=== PATIENT | female | born 1980 | race Caucasian/White ===

== ENCOUNTER → 2019-01-15 16:19 | Outpatient (CLI) | payer OTHER, SELFPAY ==
[2016-06-25 16:31] VITALS: BMI 43.9
[2019-01-15 18:02] LABS: Absolute Lymphocyte Count 2.21 X10^3/uL (0.83-4.51); Absolute Neutrophil Count 5.4 X10^3/uL (2.0-7.7); Basophil# 0.06 X10^3/uL; Basophil% 0.7 % (0-1); Eosinophil# 0.08 X10^3/uL; Hematocrit 44.2 % (37-47); Hemoglobin 14.1 g/dL (12.0-15.0); Lymphocyte # 2.21 X10^3/ul (4.0); Mean Corp Hgb Conc 31.9 g/dL (32-36); Mean Corpuscular Hgb 26.7 pg (27.0-32.0); Mean Corpuscular Volume 83.7 fL (81-99); Mean Platelet Vol. 10.4 fl (6.2-12.0); Monocyte# 0.38 X10^3/uL; Monocyte% 4.6 % (0-10); NRBC Flagged by Analyzer 0 % (0-5); Neutrophil # 5.44 X10^3/uL (2.7-7.7); Neutrophil % 66.5 % (47-70); Platelet Count 342 K/mm3 (150-450); RBC Distribution Width CV 13.5 % (11.6-14.6); Red Blood Count 5.28 M/mm3 (4.2-5.4); White Blood Count 8.2 K/mm3 (4.4-11.0)
[2019-01-15 18:24] LABS: Microalbumin,Random Urine 31.5 mg/L (NO RANGE EST.)
[2019-01-15 18:35] LABS: Erythrocyte Sedimentation Rate 36 mm/hr (0-20)
[2019-01-15 18:50] LABS: AST(SGOT) 25 U/L (15-37); Alanine Aminotransfer ALT/SGPT 64 U/L (13-56); Alkaline Phosphatase 51 U/L (45-117); Anion Gap 9 (5-15); BUN 14 mg/dL (7-18); BUN/Creat Ratio 21.8 RATIO (10-20); Calcium,Total 8.8 mg/dL (8.5-10.1); Chloride 104 mmol/L (98-107); Creatinine, Serum 0.64 mg/dL (0.55-1.02); EST Glomerular Filtration Rate 110 mL/min (>60); Est Glom Filt Rate - Afr Amer 133 mL/min (>60); Globulin 4.2 g/dL (2.2-4.2); Glucose 117 mg/dL (74-106); Potassium 3.8 mmol/L (3.5-5.1); Protein, Total 8.2 g/dL (6.4-8.2); Rheumatoid Factor < 10.0 IU/mL (<15); Sodium Level 138 mmol/L (136-145); Thyroid Stim Hormone (TSH) 2.05 uIU/mL (0.358-3.74)
[2019-01-16 10:06] LABS: Vitamin D,25 Hydroxy 32.4 ng/mL (29.95-100.01)
[2019-01-17 20:35] LABS: ANTINUCLEAR ANTIBODIES DIRECT Negative (Negative)
[2019-01-18 11:23] LABS: CCP IgG Antibodies 7 units (0-19)
== END ==
PROVIDERS: Visit Provider Family Medicine
DX: E11.65 Type 2 diabetes mellitus with hyperglycemia (principal); E28.2 Polycystic ovarian syndrome; M06.4 Inflammatory polyarthropathy
CPT/HCPCS: 36415; 80053; 82043; 82306; 82570; 84443; 85025; 85652; 86038; 86140; 86200; 86225; 86235; 86431

== ENCOUNTER 2021-05-14 17:00 | Outpatient (RCR) | payer OTHER, SELFPAY ==
--- NOTE | 2021-04-09 15:34 | HP.OTEVAL ---
Patient's Visit Information RAZIA CHOW is a 40 year old F, referred to Occupational Therapy by Dr. Casey Hartley Jr., MD, with a diagnosis of Lupus/ inflammatory arthritis, Bilateral wrist & hand pain. Date of Evaluation: 04/09/21 Occupational Therapist: Sheila Gregg, OTAnne/Isael, CHT - Subjective This 40 year old female was seen for OT eval with dx. systemic lupus erythematosus dx on 2021. pt states she has had pain in 2019 and with blood work for inflammation she has been working with her pain -. pt states she just deals with the pain-. pt states since she had covid she feels she has been in a flairs up since. pt states she does not use any adaptive equipment. 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 pt states when she carries heavy objects her fingers will lock into flexion sometimes carrying for less than 5min. pt states holding 35# or more increases finger locking. pt states she would like to figure out what she can do to decrease her bilateral hand pain - Pain bilateral hands 5 Pain Intensity Range: 5, 6 - ROM Forearm: right sup 50 left 65 Wrist: right 65/45 left 65/50 CMC: right 15 left 10 MP: right 45 left 55 IP: right 65 left 65 Radial Abduction: right 35 left 35 Palmar Abduction: right WNl left WNL Opposition: Kapandji Scale Right 10, left 10 MP: Right IF 0/65 L 0/75 MF R 0/75 L 0/75 RF 0/80 L 0/70 LF R 0/80 L 0/75 PIP: R IF 0/100 L 0/100 MF R 0/100 L 0/100 RF R 0/100 L 0/100 LF R 0/100 L 0/100 DIP: R IF 0/55 L 0/55 MF R 0/70 L 0/55 RF R 0/55 L 0/55 LF R 0/50 L 0/50 ROM Comments: pt demo tight composite fist bilaterally - Strength Show Girl: right 40# left 40# Lateral Pinch: right 12# left 10# Tripod Pinch: right 8# left 8# Tip-to-Tip Pinch: right 2# left 2# - Sensation Sensation Comments: denies - Quick DASH-Disab of Arm,Shoulder& Hand Quick DASH Score: 31.6650 - Goals Goal:: Pt will demo a increase in bilateral credit collections manager strength by 15# or greater to increase pts functional strength for ADLs and IADLs. pt will demo a increase in bilateral thumb stability by increase lateral and tripod pinch strength by 4# or greater by d/c Goal:: pt will demo increase in bilateral supination by 15* or greater to increase pts ind. with ADLs and IADLs by d/c. pt will demo increase in B wrist ROM by 20* to increase pts ind. with ADLs Goal:: pt will report a decrease in bilateral hand pain to 2/10 with use of bilateral hand with ADls and IADls by d.c Goal:: Pt will demo understanding of joint protection and ergonomics when performing BADLs and IADLs by d/c. Pt will demo understanding of adaptive Equipment use to decrease stress on joints to allow pt to perform BADSL and IADLS at NAHOMY level. pt will demo understanding of work modification to limit prolonged stress of finger joints by d/c - Rehabilitation General Assessment: pt reports pain and demo with bilateral thumb instability and limited bilateral ROM of forearm and wrist. this limits pts ind. with ADLs and IADls. Pt would benefit from skilled OT services 2-3x week for 4 weeks. Today therapist ed. pt on thumb mechanics, joint protection, use of modalities, use of compression gloves, and limit when she is hold objects for long periods of time IE cell phone- therapist also ed. pt to avoid aggressive end range active stretch to all finger joints. pt receptive and agree to POC. Rehabilitation Potential: Good - Anticipated Interventions A/AAROM/PROM, Strengthening, Triggerpoint Release, Modalities, Joint Protection/Energy Conservation, Ergonomic Education, Fine Motor Coord/Hammad, Education re assistive Equipment, Education re Diagnosis, Caregiver Training - Visit Plan Frequency: 2-3x /Week Duration: 4 Weeks TEXT: Thank you for the opportunity to evaluate your patient. For Medicare and Medicare HMO plans, please review the plan of care and approve it. It will need to be FAXED BACK to us at [phone] for Medicare purposes. Please let me know if there are questions or concerns regarding this plan of care. Physician Signature: Date:
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
--- NOTE | 2021-09-18 11:25 | HP.PTDCSUM ---
It has been my pleasure to treat RAZIA CHOW referred by Dr. Casey Hartley Jr., MD, with the diagnosis of BACK PAIN for a total of 7 visit(s). Discharge Date: 05/14/21 Please see the following information for a summary of their discharge status. Subjective: Doing much better doing ex's at home Bilateral Neck Pain Intensity (Out of 10): 4 Bilateral Back Pain Intensity (Out of 10): 2 Bilateral Shoulder Pain Intensity (Out of 10): 4 All over Pain Intensity (Out of 10): 4 % Improvement: 45 Objective/Function: POSTURE: WNL. GAIT: RECEPROCAL PATTERN. CERVICAL ROM: FLEXION WFL ,ROTATION/LATERAL FLEXION MIN LOSS ,EXTENSION MIN LOSS. LUMBAR ROM: flexion min loss, extension min loss, side glide min loss. MMT: BUE 4/5,LE 4/5 Goal 1:: I with HEP for back/neck /shoulders Goal Progress: Goal Met Goal 2:: Patient to demonstrate 50% improved function with ADLS and less pain shoulders ,back and neck Goal Progress: Goal Met Goal 3:: Patient improve posture for ADLS' 90% of the time. Goal Progress: Goal Met Goal 4:: Patient to increase strength RTC to 4/5 to improve function with ADLS' and housework tasks Goal Progress: Goal Met Goal 5:: Patient to improve back s oswetsry score by 5 points or > to improve function. Goal Progress: Goal Met Plan: D/C Discharge Comments: HEP If there are questions or concerns regarding this patient's physical therapy, please feel free to call me at [phone]. Thank you for the referral of this patient. Sincerely, Chay Chowdhury, PT, Cert MDT, OCS Balance/Gait/Functional tests - Balance/Special Test Scores Oswestry Low Back Score: 5
== END 2021-05-14 19:00 | disposition home or self-care (01) ==
LOC: PT 17:00
PROVIDERS: PCP Family Medicine; Referring Provider Internal Medicine Rheumatology; Visit Provider Internal Medicine Rheumatology
DX: M32.9 Systemic lupus erythematosus, unspecified (principal); R70.0 Elevated erythrocyte sedimentation rate; Z79.899 Other long term (current) drug therapy; Z79.1 Long term (current) use of non-steroidal anti-inflammatories (NSAID); Z82.61 Family history of arthritis; Z82.62 Family history of osteoporosis; Z82.69 Family history of other diseases of the musculoskeletal system and connective tissue; R79.82 Elevated C-reactive protein (CRP); R76.8 Other specified abnormal immunological findings in serum; E11.9 Type 2 diabetes mellitus without complications; M70.61 Trochanteric bursitis, right hip; M70.62 Trochanteric bursitis, left hip; M54.9 Dorsalgia, unspecified; M54.2 Cervicalgia; R53.83 Other fatigue; M25.561 Pain in right knee; M25.562 Pain in left knee; G89.29 Other chronic pain; M75.81 Other shoulder lesions, right shoulder; M75.82 Other shoulder lesions, left shoulder; M19.071 Primary osteoarthritis, right ankle and foot; M19.072 Primary osteoarthritis, left ankle and foot; M70.51 Other bursitis of knee, right knee; M70.52 Other bursitis of knee, left knee; M89.9 Disorder of bone, unspecified; M94.9 Disorder of cartilage, unspecified; M25.511 Pain in right shoulder; M25.512 Pain in left shoulder; M25.531 Pain in right wrist; M25.532 Pain in left wrist; M79.641 Pain in right hand; M79.642 Pain in left hand; M75.21 Bicipital tendinitis, right shoulder; M75.22 Bicipital tendinitis, left shoulder
CPT/HCPCS: 97110; 97162; 97166; 97530

== ENCOUNTER → 2021-06-12 | Outpatient (CLI) | payer OTHER, SELFPAY ==
--- NOTE | 2021-06-12 16:23 | RAD_ITS ---
STUDY: XR Wrist 2 Views REASON FOR EXAM: Female, 40 years old. PAIN TECHNIQUE: XR Wrist 2 Views RIGHT COMPARISON: None FINDINGS: There are no acute findings of the visualized distal radius and ulna. There are no acute findings of the radiocarpal articulation. Normal distal radioulnar articulation. Normal carpal bones. Normal carpal articulations. There are no acute findings of the carpometacarpal articulation of the thumb. Normal second through fifth carpometacarpal articulations. There are no acute findings of the visualized metacarpal bones. The soft tissue structures are unremarkable. RAD/Wrist 2 Views IMPRESSION: There are no acute findings of the wrist. Electronically Signed: Spencer Torres MD at 19:20 EDT ,
--- NOTE | 2021-06-12 16:23 | RAD_ITS ---
STUDY: XR Hand 2 Views REASON FOR EXAM: Female, 40 years old. PAIN TECHNIQUE: XR Hand 2 Views RIGHT COMPARISON: None. FINDINGS: Normal radiocarpal articulation. Normal distal radioulnar joint. Normal visualized carpal bones. Normal carpal articulations Normal carpometacarpal articulation of the thumb. Normal second through fifth carpometacarpal joints. Normal metacarpi. Normal metacarpophalangeal joint of the thumb. Normal interphalangeal joint of the thumb. Normal proximal and distal phalanges of the thumb. Normal metacarpophalangeal joints of the second through fifth fingers. Normal proximal and distal interphalangeal joints of the second through fifth fingers. Normal phalanges of the second through fifth fingers. The soft tissue structures are unremarkable. RAD/Hand 2 Views IMPRESSION: There are no acute findings. Electronically Signed: Spencer Torres MD at 19:19 EDT ,
--- NOTE | 2021-06-12 16:23 | RAD_ITS ---
STUDY: XR Shoulder Min 2 Views REASON FOR EXAM: Female, 40 years old. PAIN TECHNIQUE: XR Shoulder Min 2 Views RIGHT COMPARISON: None. FINDINGS: Normal glenohumeral articulation. There is degenerative arthrosis of the acromioclavicular joint without inferior osseous spur formation. Normal acromion. Normal humeral head and visualized proximal humerus. The soft tissue structures are unremarkable. Normal visualized pulmonary apex. RAD/Shoulder min 2 Views IMPRESSION: There are no acute findings of the shoulder. Electronically Signed: Spencer Torres MD at 19:18 EDT Reading Location ID and State: [facility] / [place] , Service support ,
--- NOTE | 2021-06-12 16:23 | RAD_ITS ---
STUDY: XR Wrist 2 Views REASON FOR EXAM: Female, 40 years old. PAIN TECHNIQUE: XR Wrist 2 Views LEFT COMPARISON: None FINDINGS: There are no acute findings of the visualized distal radius and ulna. There are no acute findings of the radiocarpal articulation. Normal distal radioulnar articulation. Normal carpal bones. Normal carpal articulations. There are no acute findings of the carpometacarpal articulation of the thumb. Normal second through fifth carpometacarpal articulations. There are no acute findings of the visualized metacarpal bones. The soft tissue structures are unremarkable. RAD/Wrist 2 Views IMPRESSION: There are no acute findings of the wrist. Electronically Signed: Spencer Torres MD at 19:21 EDT ,
--- NOTE | 2021-06-12 16:23 | RAD_ITS ---
STUDY: XR Hand 2 Views REASON FOR EXAM: Female, 40 years old. PAIN TECHNIQUE: XR Hand 2 Views LEFT COMPARISON: None. FINDINGS: Normal radiocarpal articulation. Normal distal radioulnar joint. Normal visualized carpal bones. Normal carpal articulations Normal carpometacarpal articulation of the thumb. Normal second through fifth carpometacarpal joints. Normal metacarpi. Normal metacarpophalangeal joint of the thumb. Normal interphalangeal joint of the thumb. Normal proximal and distal phalanges of the thumb. Normal metacarpophalangeal joints of the second through fifth fingers. Normal proximal and distal interphalangeal joints of the second through fifth fingers. Normal phalanges of the second through fifth fingers. The soft tissue structures are unremarkable. RAD/Hand 2 Views IMPRESSION: There are no acute findings. Electronically Signed: Spencer Torres MD at 19:18 EDT ,
--- NOTE | 2021-06-12 16:23 | RAD_ITS ---
STUDY: X-RAY - PELVIS AND BILATERAL HIP REASON FOR EXAM: Female, 40 years old. PAIN TECHNIQUE: XR Hips Bilateral with Pelvis when performed; 2 Views COMPARISON: None. FINDINGS: There is a non-specific bowel gas pattern. Normal visualized soft tissue structures. Normal bilateral iliac wings, sacroiliac joints and visualized sacrum. Normal bilateral superior and inferior pubic rami. Normal pubic symphysis. Normal bilateral ischial tuberosities. Normal visualized femoral head. Normal acetabulum. Normal hip joint. RAD/Hips B/L min 2 views w/ Pelvis IMPRESSION: No acute findings. Electronically Signed: Spencer Torres MD at 19:18 EDT ,
--- NOTE | 2021-06-12 16:23 | RAD_ITS ---
STUDY: XR Shoulder Min 2 Views REASON FOR EXAM: Female, 40 years old. PAIN TECHNIQUE: XR Shoulder Min 2 Views LEFT COMPARISON: None. FINDINGS: Normal glenohumeral articulation. There is degenerative arthrosis of the acromioclavicular joint without inferior osseous spur formation. Normal acromion. Normal humeral head and visualized proximal humerus. The soft tissue structures are unremarkable. Normal visualized pulmonary apex. RAD/Shoulder min 2 Views IMPRESSION: There are no acute findings of the shoulder. Electronically Signed: Spencer Torres MD at 19:17 EDT Reading Location ID and State: [facility] / [place] , Service support ,
--- NOTE | 2021-06-12 16:23 | RAD_ITS ---
STUDY: X-RAY - LUMBAR SPINE REASON FOR EXAM: Female, 40 years old. LOW BACK PAIN PAIN -- 5 VIEWS TECHNIQUE: XR Spine Lumbar Min 4 Views COMPARISON: None FINDINGS: Normal lumbar lordosis. There is no substantial scoliosis. There is a normal alignment of the vertebrae. There is multilevel endplate spondylosis of the lumbar vertebrae. There is multi-level degenerative disc disease with multi-level disc space narrowing. The soft tissue structures are unremarkable. RAD/L/S Spine Min 4 Views IMPRESSION: Degenerative changes of the spine, as detailed above. Electronically Signed: Spencer Torres MD at 19:21 EDT ,
--- NOTE | 2021-06-12 16:23 | RAD_ITS ---
STUDY: XR Knee Complete 4 Views or More 06/12/2021 7:18 PM REASON FOR EXAM: Female, 40 years old. PAIN TECHNIQUE: XR Knee Complete 4 Views or More LEFT COMPARISON: None FINDINGS: Normal visualized distal femur. Normal visualized proximal tibia and fibula. Normal proximal tibiofibular articulation. Normal medial femorotibial compartment. Normal lateral femorotibial compartment. Normal patellofemoral articulation. The soft tissue structures are unremarkable. RAD/Knee 4 or More Views IMPRESSION: There are no acute findings. Electronically Signed: Spencer Torres MD at 19:19 EDT ,
--- NOTE | 2021-06-12 16:23 | RAD_ITS ---
EXAM: XR SACRUM AND COCCYX, 2 OR MORE VIEWS CLINICAL INDICATION: PAIN TECHNIQUE: Frontal and lateral views of the sacrum and coccyx. This report was created using [employer] report generation technology. COMPARISON: None. FINDINGS: SACRUM/COCCYX: Unremarkable. No displaced fracture. No destructive or sclerotic lesions. Note that overlapping bowel shadows may however obscure fine detail in the frontal view. Sacroiliac joints are unremarkable. SOFT TISSUES: Unremarkable. No soft tissue swelling or gas. RAD/S-I Jts 3 or More Views IMPRESSION: Unremarkable sacro-coccygeal spine. Electronically Signed: Spencer Torres MD at 19:20 EDT ,
--- NOTE | 2021-06-12 16:32 | RAD_ITS ---
EXAM: XR CERVICAL SPINE, 4 OR 5 VIEWS CLINICAL INDICATION: PAIN TECHNIQUE: Frontal, lateral and bilateral oblique views of the cervical spine. This report was created using [employer] report generation technology. COMPARISON: None. FINDINGS: VERTEBRAE: Unremarkable. Preserved vertebral body height. No acute fracture. No spondylolisthesis. Preservation of the normal cervical lordosis. No significant facet arthropathy. DISC SPACES: Unremarkable. Disc spaces are maintained. SOFT TISSUES: Unremarkable. No prevertebral soft tissue widening. LUNG APICES: Clear. RAD/Cerv Spine 4 or 5 Views IMPRESSION: No evidence of acute fracture or spondylolisthesis. Electronically Signed: Spencer Torres MD at 19:19 EDT Reading Location ID and State: [facility] / [place] , Service support ,
--- NOTE | 2021-06-12 16:42 | RAD_ITS ---
STUDY: XR Knee Complete 4 Views or More 06/12/2021 7:18 PM REASON FOR EXAM: Female, 40 years old. PAIN TECHNIQUE: XR Knee Complete 4 Views or More RIGHT COMPARISON: None FINDINGS: Normal visualized distal femur. Normal visualized proximal tibia and fibula. Normal proximal tibiofibular articulation. Normal medial femorotibial compartment. Normal lateral femorotibial compartment. Normal patellofemoral articulation. The soft tissue structures are unremarkable. RAD/Knee 4 or More Views IMPRESSION: There are no acute findings. Electronically Signed: Spencer Torres MD at 19:19 EDT ,
== END | disposition home or self-care (01) ==
LOC: RAD 16:22
PROVIDERS: PCP Family Medicine; Referring Provider Internal Medicine Rheumatology; Visit Provider Internal Medicine Rheumatology
DX: M32.9 Systemic lupus erythematosus, unspecified (principal); E11.9 Type 2 diabetes mellitus without complications; R70.0 Elevated erythrocyte sedimentation rate; Z79.899 Other long term (current) drug therapy; Z79.1 Long term (current) use of non-steroidal anti-inflammatories (NSAID); R53.83 Other fatigue; Z82.61 Family history of arthritis; Z82.69 Family history of other diseases of the musculoskeletal system and connective tissue; R79.82 Elevated C-reactive protein (CRP); R76.8 Other specified abnormal immunological findings in serum; M70.61 Trochanteric bursitis, right hip; M70.62 Trochanteric bursitis, left hip; M54.9 Dorsalgia, unspecified; M54.2 Cervicalgia; M25.561 Pain in right knee; M25.562 Pain in left knee; G89.29 Other chronic pain; M75.81 Other shoulder lesions, right shoulder; M75.82 Other shoulder lesions, left shoulder; M19.071 Primary osteoarthritis, right ankle and foot; M19.072 Primary osteoarthritis, left ankle and foot; M70.51 Other bursitis of knee, right knee; M70.52 Other bursitis of knee, left knee; M19.90 Unspecified osteoarthritis, unspecified site; M89.9 Disorder of bone, unspecified; M94.9 Disorder of cartilage, unspecified; M25.511 Pain in right shoulder; M25.512 Pain in left shoulder; M25.551 Pain in right hip; M25.552 Pain in left hip; M25.531 Pain in right wrist; M25.532 Pain in left wrist; M79.641 Pain in right hand; M79.642 Pain in left hand; M75.21 Bicipital tendinitis, right shoulder; M75.22 Bicipital tendinitis, left shoulder
CPT/HCPCS: 72050; 72110; 72202; 73030; 73100; 73120; 73130; 73502; 73521; 73564

== ENCOUNTER → 2021-06-17 | Outpatient (CLI) | payer OTHER, SELFPAY ==
[2021-06-17 15:56] LABS: Bacteria 0 SEEN /hpf (None Seen); Mucous, Urine 0 SEEN /hpf (<or=2+); Red Blood Cells-Urine 0 SEEN /hpf (0-5); Squamous Epithelial Cells - UA 0 SEEN /hpf (5-10); White Blood Cells 0 SEEN /hpf (0-5)
[2021-06-17 17:06] LABS: Absolute Lymphocyte Count 2.45 X10^3/uL (0.83-4.51); Absolute Neutrophil Count 3.3 X10^3/uL (2.0-7.7); Basophil# 0.05 X10^3/uL; Basophil% 0.8 % (0-1); Eosinophils% 1.6 % (0-5); Hematocrit 38.3 % (37-47); Hemoglobin 12.6 g/dL (12.0-15.0); Lymphocyte # 2.45 X10^3/ul (0.83-4.51); Lymphocyte % 38.5 % (19-41); Mean Corp Hgb Conc 32.9 g/dL (32-36); Mean Platelet Vol. 10.6 fl (6.2-12.0); Monocyte# 0.46 X10^3/uL; Monocyte% 7.2 % (0-10); NRBC Flagged by Analyzer 0 % (0-5); Neutrophil # 3.29 X10^3/uL (2.7-7.7); Neutrophil % 51.6 % (47-70); Platelet Count 345 K/mm3 (150-450); RBC Distribution Width CV 13.8 % (11.6-14.6); RBC Distribution Width SD 40.8 fl (35.1-43.9); Red Blood Count 4.67 M/mm3 (4.2-5.4); White Blood Count 6.4 K/mm3 (4.4-11.0)
[2021-06-17 17:28] LABS: Color, Urine Yellow (Yellow); Glucose, Dipstick Normal (Normal); Ketone-Dipstick Negative (Negative); Leukocyte Esterase-Dipstick Negative /ul (Negative); Nitrite-Dipstick Negative (Negative); Occult Blood-Urine Negative /ul (Negative); Protein-Dipstick 15 mg/dl (Negative); Urine Bilirubin Dipstick Negative (Negative); Urine Clarity Clear (Clear); Urine Urobilinogen Normal (Normal)
[2021-06-17 17:46] LABS: Vitamin D,25 Hydroxy 60.5 ng/mL
[2021-06-17 17:56] LABS: AST(SGOT) 17 U/L (15-37); Alanine Aminotransfer ALT/SGPT 38 U/L (13-56); Albumin, Serum 3.7 g/dL (3.2-5.0); Alkaline Phosphatase 55 U/L (45-117); Anion Gap 7 (5-15); BUN 12 mg/dL (7-18); BUN/Creat Ratio 16.9 RATIO (10-20); CPK Total, Creatine Kinase 80 U/L (26-192); CRP 9.52 mg/L (0.0-3.0); Calcium,Total 8.2 mg/dL (8.5-10.1); Chloride 103 mmol/L (98-107); Creatinine, Serum 0.71 mg/dL (0.55-1.02); EST Glomerular Filtration Rate 96 mL/min (>60); Est Glom Filt Rate - Afr Amer 116 mL/min (>60); Globulin 3.7 g/dL (2.2-4.2); Glucose 111 mg/dL (74-106); Magnesium 1.9 mg/dL (1.6-2.6); Protein, Total 7.4 g/dL (6.4-8.2); Rheumatoid Factor < 10.0 IU/mL (<15); Sodium Level 137 mmol/L (136-145); Uric Acid 5.5 mg/dL (2.6-6.0)
[2021-06-17 18:25] LABS: Erythrocyte Sedimentation Rate 32 mm/hr (0-30)
[2021-06-20 15:25] LABS: ANTINUCLEAR ANTIBODIES DIRECT Negative (Negative); Vitamin D 1,25-Dihydroxy 42.4 pg/mL (19.9-79.3)
[2021-06-25 14:10] LABS: Albumin 3.9 g/dL (2.9-4.4); Alpha-1-Globulins 0.2 g/dL (0.0-0.4); Angiotensin Convert Enzyme 43 U/L (14-82); Complement C3 145 mg/dL (82-167); Cytoplasmic Ab (C-ANCA) <1:20 titer (Neg:<1:20); Gamma Globulin 0.9 g/dL (0.4-1.8); Immunoglobulin A 291 mg/dL (87-352); Immunoglobulin G 1018 mg/dL (586-1602); Immunoglobulin M 39 mg/dL (26-217); PROEL- TOTAL PROTEIN 7.1 g/dL (6.0-8.5); Red Blood Cell Count Test/G6PD 4.75 x10E6/uL (3.77-5.28)
[2021-06-25 16:10] LABS: G6PD Quant Test 256 (127-427); HLA B27 Negative (.); Perinuclear Ab (P-ANCA) <1:20 titer (Neg:<1:20); t-Transglutaminase IgA 4 U/mL (0-3)
== END | disposition home or self-care (01) ==
PROVIDERS: PCP Family Medicine; Visit Provider Internal Medicine Rheumatology
DX: M32.9 Systemic lupus erythematosus, unspecified (principal); R70.0 Elevated erythrocyte sedimentation rate; Z79.899 Other long term (current) drug therapy; Z79.1 Long term (current) use of non-steroidal anti-inflammatories (NSAID); R53.83 Other fatigue; Z82.69 Family history of other diseases of the musculoskeletal system and connective tissue; Z82.61 Family history of arthritis; Z82.62 Family history of osteoporosis; R79.82 Elevated C-reactive protein (CRP); R76.8 Other specified abnormal immunological findings in serum; M70.61 Trochanteric bursitis, right hip; M70.62 Trochanteric bursitis, left hip; M54.9 Dorsalgia, unspecified; M54.2 Cervicalgia; M25.561 Pain in right knee; M25.562 Pain in left knee; G89.29 Other chronic pain; M75.81 Other shoulder lesions, right shoulder; M75.82 Other shoulder lesions, left shoulder; M75.51 Bursitis of right shoulder; M75.52 Bursitis of left shoulder; M19.071 Primary osteoarthritis, right ankle and foot; M19.072 Primary osteoarthritis, left ankle and foot; M70.51 Other bursitis of knee, right knee; M70.52 Other bursitis of knee, left knee; M19.90 Unspecified osteoarthritis, unspecified site; M89.9 Disorder of bone, unspecified; M94.9 Disorder of cartilage, unspecified; M25.511 Pain in right shoulder; M25.512 Pain in left shoulder; M25.551 Pain in right hip; M25.552 Pain in left hip; M25.531 Pain in right wrist; M25.532 Pain in left wrist; M79.641 Pain in right hand; M79.642 Pain in left hand; M75.21 Bicipital tendinitis, right shoulder; M75.22 Bicipital tendinitis, left shoulder
CPT/HCPCS: 36415; 80053; 81001; 81374; 82164; 82306; 82550; 82652; 82784; 82955; 83516; 83735; 84165; 84550; 85025; 85652; 86038; 86140; 86160; 86225; 86235; 86256; 86334; 86335; 86431

== ENCOUNTER → 2021-09-02 | Outpatient (CLI) | payer OTHER, SELFPAY ==
[2021-09-02 16:33] LABS: Mucous, Urine 0 SEEN /hpf (<or=2+); Red Blood Cells-Urine 0 SEEN /hpf (0-5)
[2021-09-02 17:22] LABS: Absolute Lymphocyte Count 2.37 X10^3/uL (0.83-4.51); Absolute Neutrophil Count 3.9 X10^3/uL (2.0-7.7); Basophil# 0.04 X10^3/uL; Basophil% 0.6 % (0-1); Eosinophil# 0.09 X10^3/uL; Eosinophils% 1.3 % (0-5); Hematocrit 39.7 % (37-47); Hemoglobin 12.8 g/dL (12.0-15.0); Lymphocyte # 2.37 X10^3/ul (0.83-4.51); Lymphocyte % 34.8 % (19-41); Mean Corp Hgb Conc 32.2 g/dL (32-36); Mean Corpuscular Hgb 27.1 pg (27.0-32.0); Mean Corpuscular Volume 83.9 fL (81-99); Mean Platelet Vol. 10.3 fl (6.2-12.0); Monocyte# 0.44 X10^3/uL; Monocyte% 6.5 % (0-10); NRBC Flagged by Analyzer 0 % (0-5); Neutrophil # 3.86 X10^3/uL (2.7-7.7); Neutrophil % 56.5 % (47-70); Platelet Count 341 K/mm3 (150-450); RBC Distribution Width CV 13.7 % (11.6-14.6); RBC Distribution Width SD 41.9 fl (35.1-43.9); Red Blood Count 4.73 M/mm3 (4.2-5.4); White Blood Count 6.8 K/mm3 (4.4-11.0)
[2021-09-02 17:25] LABS: Color, Urine Yellow (Yellow); Glucose, Dipstick Normal (Normal); Ketone-Dipstick 5 mg/dl (Negative); Leukocyte Esterase-Dipstick 25 /ul (Negative); Nitrite-Dipstick Negative (Negative); Occult Blood-Urine Negative /ul (Negative); Protein-Dipstick 15 mg/dl (Negative); Specific Gravity, Urine 1.025 (1.002-1.030); Urine Bilirubin Dipstick Negative (Negative); Urine Clarity Clear (Clear); Urine Urobilinogen Normal (Normal)
[2021-09-02 17:28] LABS: Erythrocyte Sedimentation Rate 15 mm/hr (0-30)
[2021-09-02 17:36] LABS: Bacteria 3+ /hpf (None Seen); Squamous Epithelial Cells - UA 0-5 SEEN /hpf (5-10); White Blood Cells 0-5 SEEN /hpf (0-5)
[2021-09-02 18:01] LABS: ALB/GLOB Ratio 1.1 RATIO (0.9-2.4); AST(SGOT) 15 U/L (15-37); Alanine Aminotransfer ALT/SGPT 34 U/L (13-56); Albumin, Serum 3.8 g/dL (3.2-5.0); Alkaline Phosphatase 41 U/L (45-117); Anion Gap 6 (5-15); BUN 15 mg/dL (7-18); BUN/Creat Ratio 20.1 RATIO (10-20); CPK Total, Creatine Kinase 103 U/L (26-192); Chloride 104 mmol/L (98-107); Creatinine, Serum 0.75 mg/dL (0.55-1.02); EST Glomerular Filtration Rate 91 mL/min (>60); Est Glom Filt Rate - Afr Amer 110 mL/min (>60); Globulin 3.6 g/dL (2.2-4.2); Glucose 147 mg/dL (74-106); Potassium 3.9 mmol/L (3.5-5.1); Protein, Total 7.4 g/dL (6.4-8.2); Sodium Level 138 mmol/L (136-145)
[2021-09-03 08:33] LABS: Hepatitis B Surface Antibody Non-Reactive
[2021-09-04 12:08] LABS: Complement C3 159 mg/dL (82-167); HEPATITIS B SURFACE AG Negative (Negative); Hep C Antibodies 0.1 s/co ratio (0.0-0.9); Hepatitis A IgM Antibody Negative (Negative); Hepatitis B Core AB IgM Negative (Negative)
[2021-09-04 13:22] LABS: Hepatitis A AB, Total Negative (Negative)
== END | disposition home or self-care (01) ==
LOC: LAB 16:20
PROVIDERS: PCP Family Medicine; Referring Provider Internal Medicine Rheumatology; Visit Provider Internal Medicine Rheumatology
DX: M32.9 Systemic lupus erythematosus, unspecified (principal); R70.0 Elevated erythrocyte sedimentation rate; R76.8 Other specified abnormal immunological findings in serum; R79.82 Elevated C-reactive protein (CRP); Z82.69 Family history of other diseases of the musculoskeletal system and connective tissue; Z82.62 Family history of osteoporosis; Z82.61 Family history of arthritis; Z79.1 Long term (current) use of non-steroidal anti-inflammatories (NSAID); Z79.899 Other long term (current) drug therapy; R80.8 Other proteinuria; R73.9 Hyperglycemia, unspecified; E83.51 Hypocalcemia; M75.41 Impingement syndrome of right shoulder; M75.42 Impingement syndrome of left shoulder; M51.36 Other intervertebral disc degeneration, lumbar region; M19.011 Primary osteoarthritis, right shoulder; M19.012 Primary osteoarthritis, left shoulder; M19.071 Primary osteoarthritis, right ankle and foot; M19.072 Primary osteoarthritis, left ankle and foot
CPT/HCPCS: 36415; 80053; 80074; 81001; 82550; 85025; 85652; 86140; 86160; 86706; 86708; 87086; 87088

== ENCOUNTER → 2021-10-30 | Outpatient (CLI) | payer OTHER, SELFPAY | END | disposition home or self-care (01) | PROVIDERS: PCP Family Medicine; Referring Provider Family Medicine; Visit Provider Family Medicine | DX: R30.0 Dysuria (principal) | CPT/HCPCS: 87077; 87086; 87088; 87186 ==

== ENCOUNTER 2021-11-18 16:19 | Outpatient (RCR) | payer OTHER, SELFPAY ==
[2021-11-18 16:29] LABS: Mucous, Urine 0 SEEN /hpf (<or=2+)
[2021-11-18 17:26] LABS: Color, Urine Straw (Yellow); Glucose, Dipstick 100 mg/dl (Normal); Ketone-Dipstick Negative (Negative); Leukocyte Esterase-Dipstick Negative /ul (Negative); Nitrite-Dipstick Negative (Negative); Occult Blood-Urine Negative /ul (Negative); Protein-Dipstick 15 mg/dl (Negative); Specific Gravity, Urine 1.025 (1.002-1.030); Urine Bilirubin Dipstick Negative (Negative); Urine Clarity Clear (Clear); Urine Urobilinogen Normal (Normal)
[2021-11-18 17:49] LABS: Bacteria 3+ /hpf (None Seen); Red Blood Cells-Urine 0-5 SEEN /hpf (0-5); Squamous Epithelial Cells - UA 5-10 SEEN /hpf (5-10); White Blood Cells 0-5 SEEN /hpf (0-5)
[2021-11-18 17:55] LABS: AST(SGOT) 21 U/L (15-37); Alanine Aminotransfer ALT/SGPT 44 U/L (13-56); Albumin, Serum 3.8 g/dL (3.2-5.0); Alkaline Phosphatase 46 U/L (45-117); Anion Gap 7 (5-15); BUN 15 mg/dL (7-18); BUN/Creat Ratio 18.9 RATIO (10-20); CPK Total, Creatine Kinase 85 U/L (26-192); CRP 9.46 mg/L (0.0-3.0); Calcium,Total 9.1 mg/dL (8.5-10.1); Chloride 103 mmol/L (98-107); EST Glomerular Filtration Rate 85 mL/min (>60); Est Glom Filt Rate - Afr Amer 102 mL/min (>60); Globulin 3.8 g/dL (2.2-4.2); Glucose 155 mg/dL (74-106); Potassium 4.3 mmol/L (3.5-5.1); Protein, Total 7.6 g/dL (6.4-8.2); Sodium Level 139 mmol/L (136-145)
[2021-11-18 18:15] LABS: Absolute Lymphocyte Count 2.75 X10^3/uL (0.83-4.51); Absolute Neutrophil Count 3.9 X10^3/uL (2.0-7.7); Basophil# 0.06 X10^3/uL; Basophil% 0.8 % (0-1); Eosinophil# 0.12 X10^3/uL; Eosinophils% 1.6 % (0-5); Hematocrit 40.5 % (37-47); Hemoglobin 13.1 g/dL (12.0-15.0); Lymphocyte # 2.75 X10^3/ul (0.83-4.51); Lymphocyte % 37.7 % (19-41); Mean Corp Hgb Conc 32.3 g/dL (32-36); Mean Corpuscular Hgb 27.8 pg (27.0-32.0); Mean Platelet Vol. 10.8 fl (6.2-12.0); Monocyte# 0.43 X10^3/uL; Monocyte% 5.9 % (0-10); NRBC Flagged by Analyzer 0 % (0-5); Neutrophil # 3.91 X10^3/uL (2.7-7.7); Neutrophil % 53.7 % (47-70); Platelet Count 374 K/mm3 (150-450); RBC Distribution Width CV 14.3 % (11.6-14.6); RBC Distribution Width SD 45.1 fl (35.1-43.9); Red Blood Count 4.71 M/mm3 (4.2-5.4); White Blood Count 7.3 K/mm3 (4.4-11.0)
[2021-11-18 18:22] LABS: Erythrocyte Sedimentation Rate 18 mm/hr (0-30)
[2021-11-20 15:45] LABS: Complement C3 149 mg/dL (82-167)
== END 2021-11-18 18:00 | disposition home or self-care (01) ==
LOC: LAB 16:19
PROVIDERS: PCP Family Medicine; Referring Provider Internal Medicine Rheumatology; Visit Provider Internal Medicine Rheumatology
DX: M32.9 Systemic lupus erythematosus, unspecified (principal); R76.8 Other specified abnormal immunological findings in serum; R79.82 Elevated C-reactive protein (CRP); Z82.69 Family history of other diseases of the musculoskeletal system and connective tissue; Z82.62 Family history of osteoporosis; Z82.61 Family history of arthritis; R82.4 Acetonuria; Z79.1 Long term (current) use of non-steroidal anti-inflammatories (NSAID); Z79.899 Other long term (current) drug therapy; R80.8 Other proteinuria; R73.9 Hyperglycemia, unspecified; M75.41 Impingement syndrome of right shoulder; M75.42 Impingement syndrome of left shoulder; M19.90 Unspecified osteoarthritis, unspecified site; M51.36 Other intervertebral disc degeneration, lumbar region; M19.011 Primary osteoarthritis, right shoulder; M19.012 Primary osteoarthritis, left shoulder
CPT/HCPCS: 36415; 80053; 81001; 82550; 85025; 85652; 86140; 86160

== ENCOUNTER 2022-01-13 16:18 | Outpatient (RCR) | payer OTHER, SELFPAY ==
[2022-01-13 16:24] LABS: Mucous, Urine 0 SEEN /hpf (<or=2+); Red Blood Cells-Urine 0 SEEN /hpf (0-5)
[2022-01-13 16:48] LABS: Color, Urine Yellow (Yellow); Glucose, Dipstick Normal (Normal); Ketone-Dipstick Negative (Negative); Leukocyte Esterase-Dipstick 25 /ul (Negative); Nitrite-Dipstick Negative (Negative); Occult Blood-Urine Negative /ul (Negative); Protein-Dipstick Negative (Negative); Urine Bilirubin Dipstick Negative (Negative); Urine Clarity Clear (Clear); Urine Urobilinogen Normal (Normal)
[2022-01-13 16:51] LABS: Absolute Lymphocyte Count 2.37 X10^3/uL (0.83-4.51); Absolute Neutrophil Count 3.3 X10^3/uL (2.0-7.7); Basophil# 0.05 X10^3/uL; Basophil% 0.8 % (0-1); Eosinophils% 1.6 % (0-5); Hematocrit 38.3 % (37-47); Hemoglobin 12.5 g/dL (12.0-15.0); Lymphocyte # 2.37 X10^3/ul (0.83-4.51); Lymphocyte % 37.7 % (19-41); Mean Corp Hgb Conc 32.6 g/dL (32-36); Mean Corpuscular Hgb 28.1 pg (27.0-32.0); Mean Corpuscular Volume 86.1 fL (81-99); Monocyte# 0.46 X10^3/uL; Monocyte% 7.3 % (0-10); NRBC Flagged by Analyzer 0 % (0-5); Neutrophil # 3.28 X10^3/uL (2.7-7.7); Neutrophil % 52.3 % (47-70); Platelet Count 317 K/mm3 (150-450); RBC Distribution Width CV 14.4 % (11.6-14.6); RBC Distribution Width SD 44.7 fl (35.1-43.9); Red Blood Count 4.45 M/mm3 (4.2-5.4); White Blood Count 6.3 K/mm3 (4.4-11.0)
[2022-01-13 16:59] LABS: Bacteria 2+ /hpf (None Seen); Squamous Epithelial Cells - UA 0-5 SEEN /hpf (5-10)
[2022-01-13 17:00] LABS: White Blood Cells 0-5 SEEN /hpf (0-5)
[2022-01-13 17:07] LABS: Erythrocyte Sedimentation Rate 14 mm/hr (0-30)
[2022-01-13 17:41] LABS: ALB/GLOB Ratio 1.1 RATIO (0.9-2.4); AST(SGOT) 19 U/L (15-37); Alanine Aminotransfer ALT/SGPT 56 U/L (13-56); Albumin, Serum 3.7 g/dL (3.2-5.0); Alkaline Phosphatase 49 U/L (45-117); Anion Gap 6 (5-15); BUN 14 mg/dL (7-18); BUN/Creat Ratio 18.9 RATIO (10-20); CPK Total, Creatine Kinase 81 U/L (26-192); Calcium,Total 8.8 mg/dL (8.5-10.1); Chloride 104 mmol/L (98-107); Creatinine, Serum 0.74 mg/dL (0.55-1.02); EST Glomerular Filtration Rate 92 mL/min (>60); Est Glom Filt Rate - Afr Amer 111 mL/min (>60); Globulin 3.4 g/dL (2.2-4.2); Glucose 157 mg/dL (74-106); Potassium 4.1 mmol/L (3.5-5.1); Protein, Total 7.1 g/dL (6.4-8.2); Sodium Level 140 mmol/L (136-145)
[2022-01-15 10:38] LABS: Complement C3 154 mg/dL (82-167)
== END 2022-01-13 18:00 | disposition home or self-care (01) ==
LOC: LAB 16:18
PROVIDERS: PCP Family Medicine; Referring Provider Internal Medicine Rheumatology; Visit Provider Internal Medicine Rheumatology
DX: M19.041 Primary osteoarthritis, right hand (principal); M19.042 Primary osteoarthritis, left hand; M51.36 Other intervertebral disc degeneration, lumbar region; M75.41 Impingement syndrome of right shoulder; M75.42 Impingement syndrome of left shoulder; R73.9 Hyperglycemia, unspecified; R80.8 Other proteinuria; Z79.899 Other long term (current) drug therapy; Z79.1 Long term (current) use of non-steroidal anti-inflammatories (NSAID); R82.4 Acetonuria; Z82.69 Family history of other diseases of the musculoskeletal system and connective tissue; Z82.61 Family history of arthritis; Z82.62 Family history of osteoporosis; R76.8 Other specified abnormal immunological findings in serum
CPT/HCPCS: 36415; 80053; 81001; 82550; 85025; 85652; 86140; 86160

== ENCOUNTER 2022-03-26 15:13 | Outpatient (RCR) | payer OTHER, SELFPAY ==
[2022-03-26 15:22] LABS: Bacteria 0 SEEN /hpf (None Seen); Mucous, Urine 0 SEEN /hpf (<or=2+); Red Blood Cells-Urine 0 SEEN /hpf (0-5)
[2022-03-26 16:03] LABS: Erythrocyte Sedimentation Rate 28 mm/hr (0-30)
[2022-03-26 16:04] LABS: Color, Urine Yellow (Yellow); Glucose, Dipstick Normal (Normal); Ketone-Dipstick Negative (Negative); Leukocyte Esterase-Dipstick 25 /ul (Negative); Nitrite-Dipstick Negative (Negative); Occult Blood-Urine Negative /ul (Negative); Protein-Dipstick 15 mg/dl (Negative); Specific Gravity, Urine 1.025 (1.002-1.030); Urine Bilirubin Dipstick Negative (Negative); Urine Clarity Clear (Clear); Urine Urobilinogen Normal (Normal)
[2022-03-26 16:05] LABS: Absolute Lymphocyte Count 2.59 X10^3/uL (0.83-4.51); Absolute Neutrophil Count 3.6 X10^3/uL (2.0-7.7); Basophil# 0.06 X10^3/uL; Basophil% 0.9 % (0-1); Eosinophil# 0.12 X10^3/uL; Eosinophils% 1.8 % (0-5); Hematocrit 40.1 % (37-47); Hemoglobin 13.2 g/dL (12.0-15.0); Lymphocyte # 2.59 X10^3/ul (0.83-4.51); Lymphocyte % 37.8 % (19-41); Mean Corp Hgb Conc 32.9 g/dL (32-36); Mean Corpuscular Hgb 28.2 pg (27.0-32.0); Mean Corpuscular Volume 85.7 fL (81-99); Mean Platelet Vol. 10.6 fl (6.2-12.0); Monocyte# 0.44 X10^3/uL; Monocyte% 6.4 % (0-10); NRBC Flagged by Analyzer 0 % (0-5); Neutrophil # 3.63 X10^3/uL (2.7-7.7); Platelet Count 358 K/mm3 (150-450); RBC Distribution Width CV 13.9 % (11.6-14.6); RBC Distribution Width SD 42.9 fl (35.1-43.9); Red Blood Count 4.68 M/mm3 (4.2-5.4); White Blood Count 6.9 K/mm3 (4.4-11.0)
[2022-03-26 16:15] LABS: Squamous Epithelial Cells - UA 5-10 SEEN /hpf (5-10); White Blood Cells 0-5 SEEN /hpf (0-5)
[2022-03-26 16:17] LABS: ALB/GLOB Ratio 1.1 RATIO (0.9-2.4); AST(SGOT) 21 U/L (15-37); Alanine Aminotransfer ALT/SGPT 37 U/L (13-56); Albumin, Serum 3.7 g/dL (3.2-5.0); Alkaline Phosphatase 51 U/L (45-117); Anion Gap 8 (5-15); BUN 13 mg/dL (7-18); BUN/Creat Ratio 15.6 RATIO (10-20); CPK Total, Creatine Kinase 96 U/L (26-192); CRP 7.79 mg/L (0.0-3.0); Calcium,Total 9.1 mg/dL (8.5-10.1); Chloride 105 mmol/L (98-107); Creatinine, Serum 0.83 mg/dL (0.55-1.02); EST Glomerular Filtration Rate 80 mL/min (>60); Est Glom Filt Rate - Afr Amer 97 mL/min (>60); Globulin 3.5 g/dL (2.2-4.2); Glucose 168 mg/dL (74-106); Potassium 4.1 mmol/L (3.5-5.1); Protein, Total 7.2 g/dL (6.4-8.2); Sodium Level 141 mmol/L (136-145)
[2022-03-28 15:19] LABS: Complement C3 154 mg/dL (82-167)
== END 2022-03-26 18:00 | disposition home or self-care (01) ==
LOC: LAB 15:13
PROVIDERS: PCP Family Medicine; Referring Provider Internal Medicine Rheumatology; Visit Provider Internal Medicine Rheumatology
DX: M32.9 Systemic lupus erythematosus, unspecified (principal); R76.8 Other specified abnormal immunological findings in serum; R79.82 Elevated C-reactive protein (CRP); Z82.69 Family history of other diseases of the musculoskeletal system and connective tissue; Z82.62 Family history of osteoporosis; Z82.61 Family history of arthritis; R82.4 Acetonuria; Z79.1 Long term (current) use of non-steroidal anti-inflammatories (NSAID); Z79.899 Other long term (current) drug therapy; R80.8 Other proteinuria; R73.9 Hyperglycemia, unspecified; M75.41 Impingement syndrome of right shoulder; M75.42 Impingement syndrome of left shoulder; M19.90 Unspecified osteoarthritis, unspecified site; M51.36 Other intervertebral disc degeneration, lumbar region; M19.011 Primary osteoarthritis, right shoulder; M19.012 Primary osteoarthritis, left shoulder; M19.071 Primary osteoarthritis, right ankle and foot; M19.072 Primary osteoarthritis, left ankle and foot
CPT/HCPCS: 36415; 80053; 81001; 82550; 85025; 85652; 86140; 86160

== ENCOUNTER 2022-05-13 15:13 | Outpatient (RCR) | payer OTHER, SELFPAY ==
[2022-05-13 15:34] LABS: Bacteria 0 SEEN /hpf (None Seen); Mucous, Urine 0 SEEN /hpf (<or=2+); Red Blood Cells-Urine 0 SEEN /hpf (0-5); White Blood Cells 0 SEEN /hpf (0-5)
[2022-05-13 16:09] LABS: Absolute Lymphocyte Count 2.29 X10^3/uL (0.83-4.51); Absolute Neutrophil Count 3.4 X10^3/uL (2.0-7.7); Basophil# 0.04 X10^3/uL; Basophil% 0.6 % (0-1); Eosinophil# 0.11 X10^3/uL; Eosinophils% 1.8 % (0-5); Hematocrit 38.8 % (37-47); Hemoglobin 12.8 g/dL (12.0-15.0); Lymphocyte # 2.29 X10^3/ul (0.83-4.51); Lymphocyte % 37.2 % (19-41); Mean Corpuscular Hgb 28.3 pg (27.0-32.0); Mean Corpuscular Volume 85.7 fL (81-99); Mean Platelet Vol. 10.3 fl (6.2-12.0); Monocyte# 0.31 X10^3/uL; NRBC Flagged by Analyzer 0 % (0-5); Neutrophil % 55.2 % (47-70); Platelet Count 337 K/mm3 (150-450); RBC Distribution Width CV 13.8 % (11.6-14.6); RBC Distribution Width SD 42.8 fl (35.1-43.9); Red Blood Count 4.53 M/mm3 (4.2-5.4); White Blood Count 6.2 K/mm3 (4.4-11.0)
[2022-05-13 16:29] LABS: Color, Urine Yellow (Yellow); Glucose, Dipstick Normal (Normal); Ketone-Dipstick Negative (Negative); Leukocyte Esterase-Dipstick Negative /ul (Negative); Nitrite-Dipstick Negative (Negative); Occult Blood-Urine Negative /ul (Negative); Protein-Dipstick 15 mg/dl (Negative); Specific Gravity, Urine 1.025 (1.002-1.030); Urine Bilirubin Dipstick Negative (Negative); Urine Clarity Clear (Clear); Urine Urobilinogen Normal (Normal)
[2022-05-13 16:37] LABS: Squamous Epithelial Cells - UA 0-5 SEEN /hpf (5-10)
[2022-05-13 16:51] LABS: AST(SGOT) 22 U/L (15-37); Alanine Aminotransfer ALT/SGPT 45 U/L (13-56); Albumin, Serum 3.5 g/dL (3.2-5.0); Alkaline Phosphatase 47 U/L (45-117); Anion Gap 6 (5-15); BUN 14 mg/dL (7-18); BUN/Creat Ratio 14.9 RATIO (10-20); CPK Total, Creatine Kinase 114 U/L (26-192); Calcium,Total 8.5 mg/dL (8.5-10.1); Chloride 103 mmol/L (98-107); Creatinine, Serum 0.94 mg/dL (0.55-1.02); EST Glomerular Filtration Rate 69 mL/min (>60); Est Glom Filt Rate - Afr Amer 84 mL/min (>60); Globulin 3.4 g/dL (2.2-4.2); Glucose 178 mg/dL (74-106); Potassium 3.9 mmol/L (3.5-5.1); Protein, Total 6.9 g/dL (6.4-8.2); Sodium Level 137 mmol/L (136-145)
[2022-05-13 19:29] LABS: Erythrocyte Sedimentation Rate 22 mm/hr (0-30)
[2022-05-15 14:18] LABS: Complement C3 145 mg/dL (82-167)
== END 2022-05-14 21:12 | disposition home or self-care (01) ==
LOC: LAB 15:13
PROVIDERS: PCP Family Medicine; Referring Provider Internal Medicine Rheumatology; Visit Provider Internal Medicine Rheumatology
DX: M51.36 Other intervertebral disc degeneration, lumbar region (principal); M32.9 Systemic lupus erythematosus, unspecified; M19.011 Primary osteoarthritis, right shoulder; M19.012 Primary osteoarthritis, left shoulder; M19.071 Primary osteoarthritis, right ankle and foot; M19.072 Primary osteoarthritis, left ankle and foot; Z79.899 Other long term (current) drug therapy; R80.8 Other proteinuria; R73.9 Hyperglycemia, unspecified; M75.41 Impingement syndrome of right shoulder; M75.42 Impingement syndrome of left shoulder; R76.8 Other specified abnormal immunological findings in serum; Z82.69 Family history of other diseases of the musculoskeletal system and connective tissue; Z82.62 Family history of osteoporosis; Z82.61 Family history of arthritis; Z79.1 Long term (current) use of non-steroidal anti-inflammatories (NSAID); R82.4 Acetonuria
CPT/HCPCS: 36415; 80053; 81001; 82550; 85025; 85652; 86140; 86160

== ENCOUNTER → 2022-06-25 | Outpatient (CLI) | payer OTHER, SELFPAY ==
[2022-06-25 15:55] LABS: Vitamin B12 924 pg/mL (211-911)
[2022-06-25 16:03] LABS: T4 Free Direct 1.15 ng/dL (0.76-1.46); Thyroid Stim Hormone (TSH) 2.07 uIU/mL (0.358-3.74)
== END | disposition home or self-care (01) ==
LOC: BFHLAB 13:57
PROVIDERS: PCP Nurse Practitioner Family; Referring Provider Nurse Practitioner Family; Visit Provider Nurse Practitioner Family
DX: Z00.00 Encounter for general adult medical examination without abnormal findings (principal); E55.9 Vitamin D deficiency, unspecified; R53.83 Other fatigue
CPT/HCPCS: 36415; 82306; 82607; 84439; 84443

== ENCOUNTER 2022-07-16 12:46 | Outpatient (RCR) | payer OTHER, SELFPAY ==
[2022-07-16 12:53] LABS: Mucous, Urine 0 SEEN /hpf (<or=2+); Red Blood Cells-Urine 0 SEEN /hpf (0-5)
[2022-07-16 13:20] LABS: Color, Urine Yellow (Yellow); Glucose, Dipstick Normal (Normal); Ketone-Dipstick Negative (Negative); Leukocyte Esterase-Dipstick 25 /ul (Negative); Nitrite-Dipstick Negative (Negative); Occult Blood-Urine Negative /ul (Negative); Protein-Dipstick 15 mg/dl (Negative); Urine Bilirubin Dipstick Negative (Negative); Urine Clarity Sl. Cloudy (Clear); Urine Urobilinogen Normal (Normal)
[2022-07-16 13:27] LABS: Bacteria 1+ /hpf (None Seen); Squamous Epithelial Cells - UA 0-5 SEEN /hpf (5-10); White Blood Cells 0-5 SEEN /hpf (0-5)
[2022-07-16 13:28] LABS: Erythrocyte Sedimentation Rate 20 mm/hr (0-30)
[2022-07-16 13:30] LABS: Absolute Lymphocyte Count 2.56 X10^3/uL (0.83-4.51); Absolute Neutrophil Count 3.2 X10^3/uL (2.0-7.7); Basophil# 0.06 X10^3/uL; Eosinophil# 0.11 X10^3/uL; Eosinophils% 1.8 % (0-5); Hematocrit 38.9 % (37-47); Hemoglobin 13.1 g/dL (12.0-15.0); Lymphocyte # 2.56 X10^3/ul (0.83-4.51); Lymphocyte % 40.9 % (19-41); Mean Corp Hgb Conc 33.7 g/dL (32-36); Mean Corpuscular Hgb 28.9 pg (27.0-32.0); Mean Corpuscular Volume 85.7 fL (81-99); Mean Platelet Vol. 10.2 fl (6.2-12.0); Monocyte# 0.37 X10^3/uL; Monocyte% 5.9 % (0-10); NRBC Flagged by Analyzer 0 % (0-5); Neutrophil # 3.15 X10^3/uL (2.7-7.7); Neutrophil % 50.2 % (47-70); Platelet Count 366 K/mm3 (150-450); RBC Distribution Width CV 14.4 % (11.6-14.6); Red Blood Count 4.54 M/mm3 (4.2-5.4); White Blood Count 6.3 K/mm3 (4.4-11.0)
[2022-07-16 14:02] LABS: ALB/GLOB Ratio 1.1 RATIO (0.9-2.4); AST(SGOT) 27 U/L (15-37); Alanine Aminotransfer ALT/SGPT 48 U/L (13-56); Albumin, Serum 3.8 g/dL (3.2-5.0); Alkaline Phosphatase 47 U/L (45-117); Anion Gap 5 (5-15); BUN 12 mg/dL (7-18); BUN/Creat Ratio 16.9 RATIO (10-20); CPK Total, Creatine Kinase 91 U/L (26-192); CRP 9.79 mg/L (0.0-3.0); Calcium,Total 8.7 mg/dL (8.5-10.1); Chloride 107 mmol/L (98-107); Creatinine, Serum 0.71 mg/dL (0.55-1.02); EST Glomerular Filtration Rate 96 mL/min (>60); Est Glom Filt Rate - Afr Amer 117 mL/min (>60); Globulin 3.6 g/dL (2.2-4.2); Glucose 82 mg/dL (74-106); Potassium 4.2 mmol/L (3.5-5.1); Protein, Total 7.4 g/dL (6.4-8.2); Sodium Level 139 mmol/L (136-145)
[2022-07-18 10:56] LABS: Complement C3 155 mg/dL (82-167)
== END 2022-07-16 18:00 | disposition home or self-care (01) ==
LOC: LAB 12:46
PROVIDERS: PCP Nurse Practitioner Family; Referring Provider Internal Medicine Rheumatology; Visit Provider Internal Medicine Rheumatology
DX: M51.36 Other intervertebral disc degeneration, lumbar region (principal); M19.011 Primary osteoarthritis, right shoulder; M19.012 Primary osteoarthritis, left shoulder; M19.071 Primary osteoarthritis, right ankle and foot; M19.072 Primary osteoarthritis, left ankle and foot; M75.41 Impingement syndrome of right shoulder; M75.42 Impingement syndrome of left shoulder; R73.9 Hyperglycemia, unspecified; Z79.899 Other long term (current) drug therapy
CPT/HCPCS: 36415; 80053; 81001; 82550; 85025; 85652; 86140; 86160; 87086; 87088

== ENCOUNTER 2022-09-23 13:15 | Outpatient (RCR) | payer OTHER, SELFPAY ==
[2022-09-23 13:20] LABS: Mucous, Urine 0 SEEN /hpf (<or=2+); Red Blood Cells-Urine 0 SEEN /hpf (0-5)
[2022-09-23 13:34] LABS: Color, Urine Yellow (Yellow); Glucose, Dipstick Normal (Normal); Ketone-Dipstick Negative (Negative); Leukocyte Esterase-Dipstick 25 /ul (Negative); Nitrite-Dipstick Negative (Negative); Occult Blood-Urine Negative /ul (Negative); Protein-Dipstick Negative (Negative); Specific Gravity, Urine 1.015 (1.002-1.030); Urine Bilirubin Dipstick Negative (Negative); Urine Clarity Clear (Clear); Urine Urobilinogen Normal (Normal)
[2022-09-23 13:38] LABS: Absolute Lymphocyte Count 2.82 X10^3/uL (0.83-4.51); Absolute Neutrophil Count 3.5 X10^3/uL (2.0-7.7); Basophil# 0.06 X10^3/uL; Basophil% 0.9 % (0-1); Eosinophils% 1.5 % (0-5); Erythrocyte Sedimentation Rate 13 mm/hr (0-30); Hematocrit 41.1 % (37-47); Hemoglobin 13.3 g/dL (12.0-15.0); Lymphocyte # 2.82 X10^3/ul (0.83-4.51); Lymphocyte % 41.4 % (19-41); Mean Corp Hgb Conc 32.4 g/dL (32-36); Mean Corpuscular Hgb 28.5 pg (27.0-32.0); Mean Platelet Vol. 10.4 fl (6.2-12.0); Monocyte# 0.34 X10^3/uL; NRBC Flagged by Analyzer 0 % (0-5); Neutrophil # 3.48 X10^3/uL (2.7-7.7); Neutrophil % 51.1 % (47-70); Platelet Count 380 K/mm3 (150-450); RBC Distribution Width CV 14.4 % (11.6-14.6); RBC Distribution Width SD 46.1 fl (35.1-43.9); Red Blood Count 4.67 M/mm3 (4.2-5.4); White Blood Count 6.8 K/mm3 (4.4-11.0)
[2022-09-23 13:46] LABS: Bacteria RARE /hpf (None Seen); Squamous Epithelial Cells - UA 0-5 SEEN /hpf (5-10); White Blood Cells 0 SEEN /hpf (0-5)
[2022-09-23 14:12] LABS: AST(SGOT) 32 U/L (15-37); Alanine Aminotransfer ALT/SGPT 67 U/L (13-56); Albumin, Serum 3.7 g/dL (3.2-5.0); Alkaline Phosphatase 51 U/L (45-117); Anion Gap 4 (5-15); BUN 11 mg/dL (7-18); BUN/Creat Ratio 14.1 RATIO (10-20); CPK Total, Creatine Kinase 135 U/L (26-192); CRP 9.85 mg/L (0.0-3.0); Chloride 104 mmol/L (98-107); Creatinine, Serum 0.78 mg/dL (0.55-1.02); EST Glomerular Filtration Rate 86 mL/min (>60); Est Glom Filt Rate - Afr Amer 104 mL/min (>60); Globulin 3.7 g/dL (2.2-4.2); Glucose 118 mg/dL (74-106); Potassium 4.1 mmol/L (3.5-5.1); Protein, Total 7.4 g/dL (6.4-8.2); Sodium Level 137 mmol/L (136-145)
[2022-09-25 05:07] LABS: Complement C3 164 mg/dL (82-167)
== END 2022-09-23 18:00 | disposition home or self-care (01) ==
LOC: LAB 13:15
PROVIDERS: PCP Nurse Practitioner Family; Referring Provider Internal Medicine Rheumatology; Visit Provider Internal Medicine Rheumatology
DX: R80.8 Other proteinuria (principal); Z79.899 Other long term (current) drug therapy; R73.9 Hyperglycemia, unspecified; M75.42 Impingement syndrome of left shoulder; M75.41 Impingement syndrome of right shoulder; M19.90 Unspecified osteoarthritis, unspecified site; M51.86 Other intervertebral disc disorders, lumbar region; M19.011 Primary osteoarthritis, right shoulder; M19.012 Primary osteoarthritis, left shoulder; M19.071 Primary osteoarthritis, right ankle and foot; M19.072 Primary osteoarthritis, left ankle and foot
CPT/HCPCS: 36415; 80053; 81001; 82550; 85025; 85652; 86140; 86160

== ENCOUNTER → 2022-10-21 | Outpatient (CLI) | payer OTHER, SELFPAY ==
[2022-10-21 16:28] LABS: AST(SGOT) 32 U/L (15-37); Alanine Aminotransfer ALT/SGPT 73 U/L (13-56)
== END | disposition home or self-care (01) ==
LOC: LAB 15:42
PROVIDERS: PCP Nurse Practitioner Family; Referring Provider Internal Medicine Rheumatology; Visit Provider Internal Medicine Rheumatology
DX: R79.89 Other specified abnormal findings of blood chemistry (principal)
CPT/HCPCS: 36415; 84450; 84460

== ENCOUNTER 2022-11-18 14:37 | Outpatient (RCR) | payer OTHER, SELFPAY ==
[2022-11-18 14:42] LABS: Bacteria 0 SEEN /hpf (None Seen); Mucous, Urine 0 SEEN /hpf (<or=2+); Red Blood Cells-Urine 0 SEEN /hpf (0-5); Squamous Epithelial Cells - UA 0 SEEN /hpf (5-10); White Blood Cells 0 SEEN /hpf (0-5)
[2022-11-18 15:13] LABS: Color, Urine Yellow (Yellow); Glucose, Dipstick Normal (Normal); Ketone-Dipstick Negative (Negative); Leukocyte Esterase-Dipstick Negative /ul (Negative); Nitrite-Dipstick Negative (Negative); Occult Blood-Urine Negative /ul (Negative); Protein-Dipstick Negative (Negative); Specific Gravity, Urine 1.015 (1.002-1.030); Urine Bilirubin Dipstick Negative (Negative); Urine Clarity Clear (Clear); Urine Urobilinogen Normal (Normal)
[2022-11-18 15:15] LABS: Absolute Lymphocyte Count 2.43 X10^3/uL (0.83-4.51); Absolute Neutrophil Count 3.5 X10^3/uL (2.0-7.7); Basophil# 0.05 X10^3/uL; Basophil% 0.8 % (0-1); Eosinophil# 0.11 X10^3/uL; Eosinophils% 1.7 % (0-5); Hematocrit 37.7 % (37-47); Hemoglobin 12.3 g/dL (12.0-15.0); Lymphocyte # 2.43 X10^3/ul (0.83-4.51); Mean Corp Hgb Conc 32.6 g/dL (32-36); Mean Corpuscular Volume 88.9 fL (81-99); Mean Platelet Vol. 10.2 fl (6.2-12.0); Monocyte# 0.46 X10^3/uL; NRBC Flagged by Analyzer 0 % (0-5); Neutrophil % 53.2 % (47-70); Platelet Count 342 K/mm3 (150-450); RBC Distribution Width CV 14.5 % (11.6-14.6); RBC Distribution Width SD 46.4 fl (35.1-43.9); Red Blood Count 4.24 M/mm3 (4.2-5.4); White Blood Count 6.6 K/mm3 (4.4-11.0)
[2022-11-18 15:43] LABS: AST(SGOT) 19 U/L (15-37); Alanine Aminotransfer ALT/SGPT 51 U/L (13-56); Albumin, Serum 3.6 g/dL (3.2-5.0); Alkaline Phosphatase 49 U/L (45-117); Anion Gap 3 (5-15); BUN 14 mg/dL (7-18); BUN/Creat Ratio 19.1 RATIO (10-20); CPK Total, Creatine Kinase 89 U/L (26-192); CRP 9.35 mg/L (0.0-3.0); Calcium,Total 8.7 mg/dL (8.5-10.1); Chloride 108 mmol/L (98-107); Creatinine, Serum 0.73 mg/dL (0.55-1.02); EST Glomerular Filtration Rate 92 mL/min (>60); Est Glom Filt Rate - Afr Amer 112 mL/min (>60); Globulin 3.5 g/dL (2.2-4.2); Glucose 77 mg/dL (74-106); Potassium 4.2 mmol/L (3.5-5.1); Protein, Total 7.1 g/dL (6.4-8.2); Sodium Level 138 mmol/L (136-145)
[2022-11-18 15:59] LABS: Erythrocyte Sedimentation Rate 14 mm/hr (0-30)
[2022-11-20 05:08] LABS: Complement C3 142 mg/dL (82-167)
== END 2022-11-18 18:00 | disposition home or self-care (01) ==
LOC: LAB 14:37
PROVIDERS: PCP Nurse Practitioner Family; Referring Provider Internal Medicine Rheumatology; Visit Provider Internal Medicine Rheumatology
DX: M19.011 Primary osteoarthritis, right shoulder (principal); M19.012 Primary osteoarthritis, left shoulder; M19.071 Primary osteoarthritis, right ankle and foot; M19.072 Primary osteoarthritis, left ankle and foot; Z79.899 Other long term (current) drug therapy; R80.8 Other proteinuria; R73.9 Hyperglycemia, unspecified; M75.41 Impingement syndrome of right shoulder; M75.42 Impingement syndrome of left shoulder; M51.36 Other intervertebral disc degeneration, lumbar region; Z79.1 Long term (current) use of non-steroidal anti-inflammatories (NSAID)
CPT/HCPCS: 36415; 80053; 81001; 82550; 85025; 85652; 86140; 86160

== ENCOUNTER → 2023-12-09 | Outpatient (CLI) | payer OTHER, SELFPAY ==
[2023-12-09 12:34] LABS: Absolute Lymphocyte Count 1.95 X10^3/uL (0.83-4.51); Absolute Neutrophil Count 2.7 X10^3/uL (2.0-7.7); Basophil# 0.06 X10^3/uL; Basophil% 1.2 % (0-1); Eosinophil# 0.09 X10^3/uL; Eosinophils% 1.7 % (0-5); Hematocrit 40.9 % (37-47); Lymphocyte # 1.95 X10^3/ul (0.83-4.51); Lymphocyte % 37.9 % (19-41); Mean Corp Hgb Conc 31.8 g/dL (32-36); Mean Platelet Vol. 10.9 fl (6.2-12.0); Monocyte# 0.32 X10^3/uL; Monocyte% 6.2 % (0-10); NRBC Flagged by Analyzer 0 % (0-5); Neutrophil # 2.72 X10^3/uL (2.7-7.7); Neutrophil % 52.8 % (47-70); Platelet Count 320 K/mm3 (150-450); RBC Distribution Width CV 14.5 % (11.6-14.6); RBC Distribution Width SD 45.7 fl (35.1-43.9); Red Blood Count 4.65 M/mm3 (4.2-5.4); White Blood Count 5.2 K/mm3 (4.4-11.0)
[2023-12-09 13:14] LABS: Vitamin B12 1483 pg/mL (211-911); Vitamin D,25 Hydroxy 55.6 ng/mL
[2023-12-09 13:40] LABS: ALB/GLOB Ratio 1.1 RATIO (0.9-2.4); AST(SGOT) 23 U/L (15-37); Alanine Aminotransfer ALT/SGPT 39 U/L (13-56); Albumin, Serum 3.8 g/dL (3.2-5.0); Alkaline Phosphatase 47 U/L (45-117); Anion Gap 8 (5-15); BUN 11 mg/dL (7-18); BUN/Creat Ratio 16.7 RATIO (10-20); Calcium,Total 9.1 mg/dL (8.5-10.1); Chloride 104 mmol/L (98-107); Cholesterol 152 mg/dL (200); Creatinine, Serum 0.66 mg/dL (0.55-1.02); EST Glomerular Filtration Rate 104 mL/min (>60); Est Glom Filt Rate - Afr Amer 126 mL/min (>60); Ferritin 51 ng/mL (8-252); Globulin 3.5 g/dL (2.2-4.2); Glucose 110 mg/dL (74-106); High Density Lipoprotein 56 mg/dL; Iron 60 ug/dL (50-170); Potassium 4.4 mmol/L (3.5-5.1); Protein, Total 7.3 g/dL (6.4-8.2); Sodium Level 138 mmol/L (136-145); T4 Free Direct 1.12 ng/dL (0.76-1.46); Triglycerides 128 mg/dL; Very Low Density Lipoprotein 26 mg/dL (5-40)
== END | disposition home or self-care (01) ==
LOC: BFHLAB 10:26
PROVIDERS: PCP Nurse Practitioner Family; Referring Provider Nurse Practitioner Family; Visit Provider Nurse Practitioner Family
DX: Z00.01 Encounter for general adult medical examination with abnormal findings (principal); R53.83 Other fatigue
CPT/HCPCS: 36415; 80053; 80061; 82306; 82607; 82728; 83540; 84439; 84443; 85025

== ENCOUNTER → 2024-12-27 | Outpatient (CLI) | payer OTHER, SELFPAY ==
[2024-12-31 17:08] LABS: Creatine Kinase BB 0 % (0); Creatine Kinase MM 100 % (97-100); Creatine Kinase,Total,Serum 59 U/L (32-182); Macro I 0 % (Not Observed); Macro II 0 % (Not Observed)
== END | disposition home or self-care (01) ==
LOC: LAB 09:01
PROVIDERS: PCP Nurse Practitioner Family; Referring Provider Internal Medicine Rheumatology; Visit Provider Internal Medicine Rheumatology
DX: R74.8 Abnormal levels of other serum enzymes (principal)
CPT/HCPCS: 36415; 82550; 82552